=== PATIENT | male | born 1970 | race American Indian/Alaskan Native ===

== ENCOUNTER 2017-06-01 13:13 | Emergency (ER) | payer MEDICARE ==
[2017-06-01 14:03] VITALS: BP 114/69
--- NOTE | 2017-06-01 14:06 | Emergency Department Report ---
Entered by LES IGNACIO, acting as scribe for SILVER DIAZ NP. Chief Complaint: Extremity Injury, Lower Stated Complaint: LT ANKLE INJURY Time Seen by Provider: 06/01/17 14:01 - HPI History of Present Illness: 47 y/o male presents with left foot/ankle pain resulting from a misstep on stairs that occurred 4 days ago. Pt denies fever. - ROS Review of Systems: +left ankle pain -fever - Exam Vital Signs: Vital Signs 06/01/17 14:00 Temperature 97.8 F Pulse Rate 48 L Respiratory 16 Rate Blood Pressure 114/69 O2 Sat by Pulse 98 Oximetry Physical Exam: no focal deficits a and o x4 MSE screening note: Focused history and physical exam performed. Due to findings the following was ordered: xr ED Disposition for MSE Condition: Stable This documentation as recorded by the scribeMATEUS RYAN,accurately reflects the service I personally performed and the decisions made by ,SILVER DIAZ , POONAM.
--- NOTE | 2017-06-01 16:23 | XRay Report ---
LEFT ANKLE: History: Pain after trauma. The bones are well mineralized with normal bony contours and joint alignment. No fractures or destructive changes are noted and the adjacent soft tissues are normal. IMPRESSION: Normal study.
--- NOTE | 2017-06-01 18:44 | Emergency Department Report ---
ED Lower Extremity HPI - General Chief Complaint: Extremity Injury, Lower Stated Complaint: LT ANKLE INJURY Time Seen by Provider: 06/01/17 14:01 Source: patient Mode of arrival: Ambulatory Limitations: No Limitations - History of Present Illness Initial Comments: Patient is a 47 y/o male who presents due to left ankle pain x 4 days. Patient states that he hyperflexed his left ankle while trying to go up stairs. Patient denies any head injury or LOC. Patient denies any numbness, tingling. Patient c/ o swelling to the left ankle. MD Complaint: ankle injury Onset/Timin -: Sudden, days(s) Injury: Ankle: Left Type of Injury: hyperflexion Place: home Severity: moderate, severe Improves With: nothing Worsens With: nothing Context: walking - Related Data Previous Rx's Medication Instructions Recorded Last Taken Type Furosemide [Lasix] 40 mg PO DAILY #30 tablet 11/23/14 12/01/15 Rx Potassium Chloride 10 meq PO QDAY #30 capsule.er 11/23/14 12/01/15 Rx Aspirin [Aspirin TAB] 325 mg PO QDAY #30 tablet 12/10/15 Unknown Rx Carvedilol [Coreg] 12.5 mg PO BID #60 tablet 12/10/15 Unknown Rx Furosemide [Lasix TAB] 40 mg PO QDAY #30 tablet 12/10/15 Unknown Rx HYDROcodone/APAP 5-325 [[place] 1 each PO Q6H PRN #20 tablet 12/10/15 Unknown Rx 5-325 mg TAB] ISOSORBIDE MONOnitrate [Imdur ER] 30 mg PO QDAY #30 tablet 12/10/15 Unknown Rx Losartan [Cozaar] 25 mg PO DAILY #30 tablet 12/10/15 Unknown Rx Simvastatin [Zocor TAB] 20 mg PO QHS #30 tablet 12/10/15 Unknown Rx Acetaminophen/Codeine [Tylenol 1 tab PO Q6H PRN #15 tab 06/01/17 Unknown Rx /Codeine # 3 tab] Ibuprofen [Motrin 600 MG tab] 600 mg PO Q8H PRN #30 tablet 06/01/17 Unknown Rx Allergies Allergy/AdvReac Type Severity Reaction Status Date / Time No Known Allergies Allergy Verified 01/18/14 05:29 ED Review of Systems ROS: Stated complaint: LT ANKLE INJURY Other details as noted in HPI Comment: All other systems reviewed and negative Constitutional: no symptoms reported. denies: chills, fever Respiratory: no symptoms reported, orthopnea, shortness of breath Cardiovascular: chest pain Endocrine: no symptoms reported. denies: intolerance to cold Musculoskeletal: joint swelling (left ankle), arthralgia (left ankle). denies: back pain Neurological: denies: headache ED Past Medical Hx - Past Medical History Previous Medical History?: Yes Hx Hypertension: Yes Hx Congestive Heart Failure: Yes Hx Diabetes: No Hx Renal Disease: Yes Hx Asthma: No Hx COPD: No Additional medical history: AICD - Surgical History Past Surgical History?: Yes Hx Pacemaker: Yes (AICD 06/24) Hx Internal Defibrillator: Yes (06/2014) Additional Surgical History: AICD placement - Social History Smoking Status: Former Smoker Substance Use Type: Prescribed - Medications Home Medications: Home Medications Medication Instructions Recorded Confirmed Last Taken Type Furosemide [Lasix] 40 mg PO DAILY #30 tablet 11/23/14 12/02/15 12/01/15 Rx Potassium Chloride 10 meq PO QDAY #30 capsule.er 11/23/14 12/02/15 12/01/15 Rx Aspirin [Aspirin TAB] 325 mg PO QDAY #30 tablet 12/10/15 Unknown Rx Carvedilol [Coreg] 12.5 mg PO BID #60 tablet 12/10/15 Unknown Rx Furosemide [Lasix TAB] 40 mg PO QDAY #30 tablet 12/10/15 Unknown Rx HYDROcodone/APAP 5-325 [[place] 1 each PO Q6H PRN #20 tablet 12/10/15 Unknown Rx 5-325 mg TAB] ISOSORBIDE MONOnitrate [Imdur ER] 30 mg PO QDAY #30 tablet 12/10/15 Unknown Rx Losartan [Cozaar] 25 mg PO DAILY #30 tablet 12/10/15 Unknown Rx Simvastatin [Zocor TAB] 20 mg PO QHS #30 tablet 12/10/15 Unknown Rx Acetaminophen/Codeine [Tylenol 1 tab PO Q6H PRN #15 tab 06/01/17 Unknown Rx /Codeine # 3 tab] Ibuprofen [Motrin 600 MG tab] 600 mg PO Q8H PRN #30 tablet 06/01/17 Unknown Rx ED Physical Exam - General Limitations: No Limitations General appearance: alert, in no apparent distress - Head Head exam: Present: atraumatic, normocephalic - Eye Eye exam: Present: normal appearance - Neck Neck exam: Present: normal inspection - Extremities Exam Extremities exam: Present: tenderness - Expanded Lower Extremity Exam Left Ankle exam: Present: full ROM, tenderness, swelling. Absent: abrasion, laceration, ecchymosis, deformity, crepidus, dislocation, erythema Neuro vascular tendon exam: Present: no vascular compromise - Back Exam Back exam: Present: normal inspection, full ROM. Absent: tenderness - Neurological Exam Neurological exam: Present: alert, oriented X3 - Psychiatric Psychiatric exam: Present: normal affect, normal mood - Skin Skin exam: Present: warm, dry, intact ED Course Vital Signs 06/01/17 14:00 Temperature 97.8 F Pulse Rate 48 L Respiratory 16 Rate Blood Pressure 114/69 O2 Sat by Pulse 98 Oximetry ED Lower Extremity MDM - Radiology Data Radiology results: report reviewed x-ray of th eleft ankle did not show any acute osseous findings. - Medical Decision Making patient was in NAD, patient had tenderness with palpation of the lateral and medial malleolus, patient had moderate swelling, no skin injury. neurovascular intact. carlos eduardo wrap and ankle stirrup were applied to the left ankle. x-ray of the left ankle did not show any acute osseous findings. - Differential Diagnosis ankle sprain, ankle fracture, foot sprain Critical care attestation.: If time is entered above; I have spent that time in minutes in the direct care of this critically ill patient, excluding procedure time. ED Disposition Clinical Impression: Ankle sprain Qualifiers: Encounter type: initial encounter Involved ligament of ankle: unspecified ligament Laterality: left Qualified Code(s): S93.402A - Sprain of unspecified ligament of left ankle, initial encounter Disposition: - TO HOME OR SELFCARE Is pt being admited?: No Does the pt Need Aspirin: No Condition: Good Instructions: Ankle Sprain (ED), Ankle Stirrup Splint (ED) Additional Instructions: take ibuprofen as prescribed 600mg every 8hours as needed for pain. Take tylenol with codeine for severe pain. do not drive or use heavy machinery when taking tylenol with codeine. follow up with the provided medical front desk specialist for any worsening symptoms. Prescriptions: Acetaminophen/Codeine [Tylenol /Codeine # 3 tab] 1 tab PO Q6H PRN #15 tab PRN Reason: Pain Ibuprofen [Motrin 600 MG tab] 600 mg PO Q8H PRN #30 tablet PRN Reason: Pain Referrals: PRIMARY CAREMD [Primary Care Provider] - 3-5 Days KENRICK MIRZA MD [Staff Physician] - 3-5 Days Time of Disposition: 18:51
== END 2017-06-01 20:04 | disposition home or self-care (01) ==
LOC: ED 13:13
DX: S93.402A Sprain of unspecified ligament of left ankle, initial encounter (principal); I10 Essential (primary) hypertension; I50.9 Heart failure, unspecified; N28.9 Disorder of kidney and ureter, unspecified; Z95.810 Presence of automatic (implantable) cardiac defibrillator; Z79.82 Long term (current) use of aspirin; X50.1XXA Overexertion from prolonged static or awkward postures, initial encounter; Y93.89 Activity, other specified; Y92.89 Other specified places as the place of occurrence of the external cause; Y99.8 Other external cause status